=== PATIENT | male | born 1995 | race African-American/Black ===

== ENCOUNTER 2023-01-14 06:17 | Emergency (ER) | payer OTHER, SELFPAY ==
[2023-01-14 06:23] VITALS: BP 142/94; PULSE 67; RESP 16; TEMP 36.6; O2SAT 99; BMI 25.1
--- NOTE | 2023-01-14 07:14 | ED.DENTAL1 ---
HPI - Dental/Oral General Chief complaint: Dental/Oral Stated complaint: MOUTH AND TEETH PAIN Time Seen by Provider: 01/14/23 07:07 Source: patient Mode of arrival: walk-in Limitations: no limitations History of Present Illness HPI Narrative: 27-year-old male presents for toothache. He is complaining of pain to the left upper dentition posteriorly. He doesn't have a dentist and he's had this for a few days. No fever or difficulty breathing or swallowing and the pain moderate and continuous and throbbing. Related Data Previous Rx's Medication Instructions Recorded acetaminophen 300 mg-codeine 30 mg 1 tab PO Q6H PRN pain #20 tabs 01/14/23 tablet penicillin V potassium 250 mg 250 mg PO QID 10 days #40 tabs 01/14/23 tablet Allergies Allergy/AdvReac Type Severity Reaction Status Date / Time No Known Drug Allergies Allergy Verified 01/14/23 06:27 Review of Systems ROS Narrative A ten point review of systems is negative except as noted above. PFSH PFSH Social History Smoking status: Current every day smoker Exam Narrative Exam Narrative: Nurses note and vital signs reviewed and patient is not hypoxic. General: The patient appears well and in no apparent distress. Patient is resting comfortably on cart. Skin: Warm, dry, no pallor noted. There is no rash noted. Head: Normocephalic, atraumatic Eye: Normal conjunctiva, no drainage Ears, Nose, Mouth, and Throat: oral mucosa is moist. Nares patent. Mouth without vesicles. no swelling or erythema. No swelling to the floor of his mouth. No gingival swelling. No bleeding or pus in his mouth. Cardiovascular: Regular Rate and Rhythm Respiratory: Patient is in no distress, no accessory muscle use, lungs are clear to auscultation, no wheezing, rales or rhonchi Back: non-tender GI: soft and nontender Musculoskeletal: The patient has no evidence of calf tenderness, no pitting edema, symmetrical pulses noted bilaterally Neurological: A&O, normal speech Psychiatric: Cooperative Constitutional Vital Signs, click to edit/add: Last Vital Signs Temp 98 F 01/14/23 06:23 Pulse 67 01/14/23 06:23 Resp 16 01/14/23 06:23 BP 142/94 H 01/14/23 06:23 Pulse Ox 99 01/14/23 06:23 O2 Del Method Room Air 01/14/23 06:23 Course Vital Signs Vital signs: Vital Signs Temperature 98 F 01/14/23 06:23 Pulse Rate 67 01/14/23 06:23 Respiratory Rate 16 01/14/23 06:23 Blood Pressure 142/94 H 01/14/23 06:23 Pulse Oximetry 99 01/14/23 06:23 Oxygen Delivery Method Room Air 01/14/23 06:23 Temperature 98 F 01/14/23 06:23 Pulse Rate 67 01/14/23 06:23 Respiratory Rate 16 01/14/23 06:23 Blood Pressure 142/94 H 01/14/23 06:23 Pulse Oximetry 99 01/14/23 06:23 Oxygen Delivery Method Room Air 01/14/23 06:23 MDM - Dental/Oral MDM Narrative Medical decision making narrative: he is provided pain medicine and an antibiotic and referral to dentistry. Treatment diagnosis and follow-up were discussed with the patient. Differential Diagnosis Differential diagnosis: Likely gingival abscess, dental caries, toothache, dental abscess and fracture of tooth Discharge Plan Discharge Chief Complaint: Dental/Oral Clinical Impression: Toothache Patient Disposition: Home, Self-Care Time of Disposition Decision: 07:11 Condition: Good Mode of Transportation: Private Vehicle Prescriptions / Home Meds: New acetaminophen-codeine 300-30 mg tablet 1 tab PO Q6H PRN (Reason: pain) Qty: 20 0RF penicillin V potassium 250 mg tablet 250 mg PO QID 10 Days Qty: 40 0RF Instructions: Toothache (ED) Additional Instructions: F/U with dentistry Stand Alone Forms: Portal Instructions Referrals: Physician,Non-Staff, MD [Primary Care Provider] - 1 week
[2023-01-14 07:25] VITALS: BP 128/94; PULSE 82; RESP 16; O2SAT 100
== END 2023-01-14 07:26 | disposition home or self-care (01) ==
PROVIDERS: Emergency Provider Emergency Medicine
DX: K08.89 Other specified disorders of teeth and supporting structures (principal); F17.210 Nicotine dependence, cigarettes, uncomplicated
CPT/HCPCS: 99283

== ENCOUNTER 2023-05-19 17:13 | Emergency (ER) | payer OTHER, SELFPAY ==
[2023-05-19 17:26] VITALS: BP 127/93; PULSE 75; RESP 20; TEMP 37.2; O2SAT 100; BMI 24.4
[2023-05-19 17:51] LABS: Bilirubin Urine NEGATIVE (NEGATIVE); Blood Urine NEGATIVE (NEGATIVE); Clarity Urine CLEAR (CLEAR); Color Urine LT. YELLOW (YELLOW); Glucose Urine UA NEGATIVE (NEGATIVE); Ketones Urine NEGATIVE (NEGATIVE); Leukocyte Esterase Urine NEGATIVE (NEGATIVE); Nitrite Urine NEGATIVE (NEGATIVE); Protein Urine NEGATIVE (NEG/TRACE); Specific Gravity Urine 1.015 (1.005-1.025); Urobilinogen Urine 0.2 EU/dL (0.2-1.0); pH Urine 8.5 (5.0-9.0)
[2023-05-19 18:00] LABS: Bacteria Urine NONE SEEN #/HPF (NONE SEEN); Cast Seen? NONE SEEN #/LPF (NONE SEEN); Crystals Seen? None Seen #/HPF (None Seen); Mucus Urine NONE SEEN (NONE SEEN); RBC Urine NONE SEEN #/HPF (0-2); Squamous Epithelial Cell Urine RARE #/LPF (NONE/RARE); WBC Urine NONE SEEN #/HPF (NONE SEEN)
--- NOTE | 2023-05-19 18:47 | ED.MALEGU1 ---
HPI - Male Genitourinary General Chief complaint: Urogenital-Male Stated complaint: Urine Rentention Time Seen by Provider: 05/19/23 17:20 Source: patient Mode of arrival: walk-in Limitations: no limitations History of Present Illness HPI Narrative: 28-year-old male presents here chief complaint of increased urinary frequency and difficulty with urination. Patient presents here and states that a history of urinary retention in the past. Patient states she's had increased frequency throughout the day today. Denies any discharge.Patient afebrile nontoxic. Related Data Previous Rx's Medication Instructions Recorded acetaminophen 300 mg-codeine 30 mg 1 tab PO Q6H PRN pain #20 tabs 01/14/23 tablet penicillin V potassium 250 mg 250 mg PO QID 10 days #40 tabs 01/14/23 tablet Allergies Allergy/AdvReac Type Severity Reaction Status Date / Time No Known Drug Allergies Allergy Verified 01/14/23 06:27 Review of Systems ROS Narrative All Systems are negative except as noted/marked. PFSH PFSH Social History Smoking status: Current every day smoker Exam Narrative Exam Narrative: Nurses note and vital signs reviewed and patient is not hypoxic. General: The patient appears well and in no apparent distress. Patient is resting comfortably on cart. Skin: Warm, dry, no pallor noted. There is no rash noted. Head: Normocephalic, atraumatic Eye: Normal conjunctiva, no drainage, EOMI. PERRL Ears, Nose, Mouth, and Throat: oral mucosa is moist. Nares patent. Mouth without vesicles. Ear canals patent. Tm's without Erythema Cardiovascular: Regular Rate and Rhythm gu: Denies urethral discharge GI: Normal bowel sounds, no tenderness to palpation, no masses appreciated. No rebound, guarding, or rigidity noted. Musculoskeletal: The patient has no evidence of calf tenderness, no pitting edema, symmetrical pulses noted bilaterally Neurological: A&O x4, normal speech Psychiatric: Cooperative Constitutional Vital Signs, click to edit/add: Last Vital Signs Temp 98.9 F 05/19/23 17: Pulse 75 05/19/23 17: Resp 20 05/19/23 17: BP 127/93 H 05/19/23 17: Pulse Ox 100 05/19/23 17:26 O2 Del Method Room Air 05/19/23 17:26 Course Vital Signs Vital signs: Vital Signs Temperature 98.9 F 05/19/23 17:26 Pulse Rate 75 05/19/23 17:26 Respiratory Rate 20 05/19/23 17:26 Blood Pressure 127/93 H 05/19/23 17:26 Pulse Oximetry 100 05/19/23 17:26 Oxygen Delivery Method Room Air 05/19/23 17:26 Temperature 98.9 F 05/19/23 17:26 Pulse Rate 75 05/19/23 17:26 Respiratory Rate 20 05/19/23 17:26 Blood Pressure 127/93 H 05/19/23 17:26 Pulse Oximetry 100 05/19/23 17:26 Oxygen Delivery Method Room Air 05/19/23 17:26 MDM - Male Genitourinary MDM Narrative Medical decision making narrative: Patient presents here with chief complaint urinary retention. Upon arrival here to the emergency room bladder scan was performed patient had less than seven mL's of urine in his bladder. He is currently staying in the area at a rehab facility. He denies any urethral discharge states she's had burning and increased frequency. GC chlamydia urine is a lab send out, patient will prophylactically treated. I discussed this with him, he agrees to have Rocephin and Zithromax medication here in emergency room. Patient was also given one dose of Pyridium. Patient has no evidence of urinary retention here today. Reasons to return to the emergency room were discussed. Differential Diagnosis Differential diagnosis: Likely urinary tract infection, urethritis and acute retention of urine Medical Records Attestation: I reviewed the patient's medical records. Medical records narrative: Patient presents here with chief complaint urinary retention. Upon arrival here to the emergency room bladder scan was performed patient had less than seven mL's of urine in his bladder. He is currently staying in the area at a rehab facility. He denies any urethral discharge states she's had burning and increased frequency. GC chlamydia urine is a lab send out, patient will prophylactically treated. I discussed this with him, he agrees to have Rocephin and Zithromax medication here in emergency room. Patient was also given one dose of Pyridium. Patient has no evidence of urinary retention here today. Reasons to return to the emergency room were discussed. Lab Data Attestation: I reviewed the patient's lab results. Labs: Lab Results 05/19/23 Range/Units 17:45 Urine Color Lt. yellow (YELLOW) Urine Clarity Clear (CLEAR) Urine pH 8.5 (5.0-9.0) Ur Specific [place] 1.015 (1.005-1.025) Urine Protein Negative (NEG/TRACE) mg/dL Urine Glucose (UA) Negative (NEGATIVE) mg/dL Urine Ketones Negative (NEGATIVE) mg/dL Urine Occult Blood Negative (NEGATIVE) Urine Nitrite Negative (NEGATIVE) Urine Bilirubin Negative (NEGATIVE) Urine Urobilinogen 0.2 (0.2-1.0) EU/dL Ur Leukocyte Esterase Negative (NEGATIVE) Urine RBC None seen (0-2) #/HPF Urine WBC None seen (NONE SEEN) #/HPF Ur Squamous Epith Cells Rare (NONE/RARE) #/LPF Urine Crystals None seen (None Seen) #/HPF Urine Bacteria None seen (NONE SEEN) #/HPF Urine Casts None seen (NONE SEEN) #/LPF Urine Mucus None seen (NONE SEEN) Discharge Plan Discharge Chief Complaint: Urogenital-Male Clinical Impression: Dysuria Patient Disposition: Home, Self-Care Time of Disposition Decision: 18:46 Condition: Good Prescriptions / Home Meds: No Action acetaminophen-codeine 300-30 mg tablet 1 tab PO Q6H PRN (Reason: pain) Qty: 20 0RF penicillin V potassium 250 mg tablet 250 mg PO QID 10 Days Qty: 40 0RF Instructions: Nonspecific Urethritis in Men (ED), Dysuria (ED) Stand Alone Forms: Portal Instructions Referrals: Physician,Non-Staff, MD [Primary Care Provider] - 1 week
[2023-05-19] MEDS: PHENAZOPYRIDINE 100 MG TABLET PO (18:54)
[2023-05-19] MEDS: AZITHROMYCIN 250 MG TABLET 1000 MG PO (18:54)
[2023-05-19] MEDS: CEFTRIAXONE 500 MG, LIDOCAINE HCL/PF 1 ML IM (18:54)
[2023-05-22 20:08] LABS: Neisseria gonorrhoeae, NAA Negative (Negative)
== END 2023-05-19 19:03 | disposition home or self-care (01) ==
PROVIDERS: Physician Assistant; Emergency Provider Emergency Medicine
DX: R30.0 Dysuria (principal); F17.210 Nicotine dependence, cigarettes, uncomplicated
CPT/HCPCS: 81001; 87491; 87591; 99283; J0696